=== PATIENT | female | born 1935 | race Caucasian/White ===

== ENCOUNTER 2021-10-29 10:27 | Emergency (ER) | payer OTHER ==
[2021-10-29 10:53] VITALS: BMI 22.3
[2021-10-29] MEDS ORDERED: ACETAMINOPHEN 325 MG TABLET (FP) PO ONE ×2 (12:09→14:26)
[2021-10-29] MEDS ORDERED: ACETAMINOPHEN 325 MG TABLET (FP) ONE ×2 (12:12→14:39)
[2021-10-29 15:04] VITALS: BP 121/67; PULSE 70; TEMP 98.4
== END 2021-10-29 15:13 ==
LOC: JER 10:27
DX: S09.90XA Unspecified injury of head, initial encounter (principal); W19.XXXA Unspecified fall, initial encounter
CPT/HCPCS: 70450-TC; 72125-TC; 72170-TC-FY; 73110-TC-LT-FY; 99284-25; C9803-CS; U0003; U0005

== ENCOUNTER 2022-12-11 14:07 | Observation (INO) | payer OTHER ==
[2022-12-11 15:05] LABS: BASO % 0.7 % (0-2.0); EOS % 7.4 % (0-4.5); HEMATOCRIT 34.1 % (32.4-45.2); HEMOGLOBIN 11.3 GM/dL (10.7-15.3); LYMPH % 31.8 % (8-40); MCHC 33.3 g/dl (32.0-36.0); MEAN CELL VOLUME 90.2 fl (80-96); MEAN PLT VOLUME 8.6 fl (7.5-11.1); MONO % 9.7 % (3.8-10.2); NEUT % 50.4 % (42.8-82.8); PLATELET COUNT 152 10^3/uL (134-434); RBC 3.78 M/mm3 (3.60-5.2); RDW 14.8 % (11.6-15.6); WHITE BLOOD COUNT 6.7 K/mm3 (4.0-10.0)
[2022-12-11 15:20] LABS: INR 1.07 (0.83-1.09); PROTHROMBIN TIME (PATIENT) 12.4 SEC (9.7-13.0)
[2022-12-11 15:22] LABS: ACTIVATED PTT 31.7 SECONDS (25.2-36.5)
[2022-12-11 15:28] LABS: CALCIUM 8.6 mg/dL (8.5-10.1)
[2022-12-11 15:29] LABS: ALBUMIN 3.3 g/dl (3.4-5.0); BLOOD UREA NITROGEN 20.6 mg/dL (7-18)
[2022-12-11 15:32] LABS: CREATININE 0.7 mg/dL (0.55-1.3)
[2022-12-11 15:33] LABS: BILIRUBIN,TOTAL 0.3 mg/dL (0.2-1); TOT PROT 6.1 g/dl (6.4-8.2)
[2022-12-11] MEDS ORDERED: ASPIRIN 81 MG CHEWABLE TABLETS PO ONE (16:20)
[2022-12-11] MEDS ORDERED: ATORVASTATIN CA 80 MG TABLET (FP) PO ONE (16:21)
[2022-12-11 16:50] LABS: URINE APPEARANCE CLEAR; URINE COLOR YELLOW
[2022-12-11 16:51] LABS: PH,URINE 5.5 (5.0-8.0); URINE BILIRUBIN NEGATIVE (NEGATIVE); URINE GLUCOSE (UA) NEGATIVE (NEGATIVE); URINE KETONE NEGATIVE (NEGATIVE); URINE LEUK ESTERASE NEGATIVE (NEGATIVE); URINE NITRITE NEGATIVE (NEGATIVE); URINE PROTEIN NEGATIVE (NEGATIVE); URINE UROBILINOGEN 0.2 mg/dL (0.2-1.0)
[2022-12-11] MEDS ORDERED: ATORVASTATIN CA 80 MG TABLET (FP) ONE (17:00)
[2022-12-11] MEDS ORDERED: ASPIRIN 81 MG CHEWABLE TABLETS ONE (17:00)
[2022-12-12 08:07] LABS: HEMATOCRIT 33.7 % (32.4-45.2); HEMOGLOBIN 11.5 GM/dL (10.7-15.3); MCH 30.7 pg (25.7-33.7); MCHC 34.3 g/dl (32.0-36.0); MEAN CELL VOLUME 89.7 fl (80-96); PLATELET COUNT 142 10^3/uL (134-434); RBC 3.75 M/mm3 (3.60-5.2); RDW 14.6 % (11.6-15.6); WHITE BLOOD COUNT 6.2 K/mm3 (4.0-10.0)
[2022-12-12 08:28] LABS: BLOOD UREA NITROGEN 16.9 mg/dL (7-18); CALCIUM 8.4 mg/dL (8.5-10.1)
[2022-12-12 08:29] LABS: MAGNESIUM 1.7 mg/dL (1.8-2.4)
[2022-12-12 08:32] LABS: CREATININE 0.6 mg/dL (0.55-1.3); PHOSPHOROUS 3.9 mg/dL (2.5-4.9)
[2022-12-12] MEDS ORDERED: PANTOPRAZOLE 40 MG TABLET PO ONE (09:19)
[2022-12-12] MEDS ORDERED: amLODIPine BESYLATE 5 MG TABLET (FP) ONE ×2 (09:19→09:21)
[2022-12-12] MEDS ORDERED: ATENOLOL 50 MG TABLET (FP) ONE (09:19)
[2022-12-12] MEDS ORDERED: ENOXAPARIN NA (PORCINE) 40 MG/0.4 ML DISP.SYRIN SQ ONE (09:20)
[2022-12-12] MEDS ORDERED: QUEtiapine FUMARATE 100 MG TABLET (FP) ONE (09:20)
[2022-12-12] MEDS ORDERED: CHOLECALCIFEROL (VIT D3) 1,000 UNIT (25 MCG) TABLET ONE (09:20)
[2022-12-12] MEDS ORDERED: ASPIRIN 81 MG CHEWABLE TABLETS ONE (09:20)
[2022-12-12] MEDS ORDERED: MAGNESIUM SULF 50% (8.12 MEQ/2 ML-1 GM VIAL) IVPB ONE (09:24)
[2022-12-12] MEDS ORDERED: ATENOLOL 50 MG TABLET (FP) PO SCH (10:00)
[2022-12-12] MEDS: ASPIRIN 81 MG CHEWABLE TABLETS PO SCH (10:27)
[2022-12-12] MEDS: CHOLECALCIFEROL (VIT D3) 1,000 UNIT (25 MCG) TABLET PO SCH (10:28)
[2022-12-12] MEDS: SERTRALINE HCL 50 MG TABLET (FP) PO SCH (10:28)
[2022-12-12] MEDS: ENOXAPARIN NA (PORCINE) 40 MG/0.4 ML DISP.SYRIN SQ SCH (10:28)
[2022-12-12] MEDS: PANTOPRAZOLE 40 MG TABLET PO SCH (10:28)
[2022-12-12] MEDS: amLODIPine BESYLATE 5 MG TABLET (FP) PO SCH (10:28)
[2022-12-12] MEDS ORDERED: MAGNESIUM 1GM/D5W - 1 GM/100 ML IVPB IVPB ONE (13:09)
[2022-12-12] MEDS: ATORVASTATIN CA 80 MG TABLET (FP) PO SCH (21:24)
[2022-12-13 01:26] VITALS: BMI 22.8
[2022-12-13] MEDS: ASPIRIN 81 MG CHEWABLE TABLETS PO SCH (10:58)
[2022-12-13] MEDS: ENOXAPARIN NA (PORCINE) 40 MG/0.4 ML DISP.SYRIN SQ SCH (10:58)
[2022-12-13] MEDS: CHOLECALCIFEROL (VIT D3) 1,000 UNIT (25 MCG) TABLET PO SCH (10:59)
[2022-12-13] MEDS: amLODIPine BESYLATE 5 MG TABLET (FP) PO SCH (10:59)
[2022-12-13] MEDS: SERTRALINE HCL 50 MG TABLET (FP) PO SCH (10:59)
[2022-12-13] MEDS: PANTOPRAZOLE 40 MG TABLET PO SCH (10:59)
[2022-12-13] MEDS ORDERED: ATENOLOL 25 MG TABLET (FP) PO SCH (12:08)
[2022-12-13] MEDS: ATENOLOL 25 MG TABLET (FP) PO SCH (13:03)
[2022-12-13 19:29] VITALS: RESP 18
[2022-12-13] MEDS ORDERED: DONEPEZIL HCL 5 MG TABLET (FP) PO SCH (22:00)
[2022-12-13] MEDS: ATORVASTATIN CA 80 MG TABLET (FP) PO SCH (22:06)
[2022-12-14] MEDS: PANTOPRAZOLE 40 MG TABLET PO SCH (09:22)
[2022-12-14] MEDS: ACETAMINOPHEN 325 MG TABLET (FP) PO PRN ×2 (09:22→16:27)
[2022-12-14] MEDS: ASPIRIN 81 MG CHEWABLE TABLETS PO SCH (09:22)
[2022-12-14] MEDS: ATENOLOL 25 MG TABLET (FP) PO SCH (09:23)
[2022-12-14] MEDS: CHOLECALCIFEROL (VIT D3) 1,000 UNIT (25 MCG) TABLET PO SCH (09:24)
[2022-12-14] MEDS: amLODIPine BESYLATE 5 MG TABLET (FP) PO SCH (09:24)
[2022-12-14] MEDS: SERTRALINE HCL 50 MG TABLET (FP) PO SCH (09:24)
[2022-12-14] MEDS: ENOXAPARIN NA (PORCINE) 40 MG/0.4 ML DISP.SYRIN SQ SCH (09:28)
[2022-12-14] MEDS ORDERED: ASPIRIN/DIPYRIDAMOLE 25 MG/200 MG CAPSULE PO SCH (10:00)
[2022-12-14 17:18] VITALS: BP 122/68; PULSE 57; TEMP 98
== END 2022-12-14 17:19 ==
LOC: JER 14:07 → INTOOBSV 16:53 → JERBED 16:53 → J4S 12-12 19:13
PROVIDERS: ADMIT Internal Medicine; ATTEND Family Medicine
PROC: 3E023GC Introduction of Other Therapeutic Substance into Muscle, Percutaneous Approach (ICD-10-PCS; principal; 2022-12-11)
PROC: 3E033GC Introduction of Other Therapeutic Substance into Peripheral Vein, Percutaneous Approach (ICD-10-PCS; 2022-12-11)
DX: I63.89 Other cerebral infarction (principal); F03.90 Unspecified dementia, unspecified severity, without behavioral disturbance, psychotic disturbance, mood disturbance, and anxiety; K21.9 Gastro-esophageal reflux disease without esophagitis; I10 Essential (primary) hypertension; M48.00 Spinal stenosis, site unspecified; M19.90 Unspecified osteoarthritis, unspecified site; Z87.891 Personal history of nicotine dependence
CPT/HCPCS: 36415; 70450-TC; 70496-TC; 70498-TC; 70551-TC; 80048; 80053; 80061; 81003; 82962; 83036; 83735; 84100; 84443; 84484; 85025; 85027; 85610; 85730; 86850; 86900; 86901; 87086; 87186; 93005; 93010; 93306-TC; 93880-TC; 96372; 96374; 97116-GP; 97162-GP; 99291; C9803-CS; G0378; U0003; U0005

== ENCOUNTER 2023-02-20 11:25 | Inpatient (IN) | payer OTHER ==
[2023-02-20] MEDS: SODIUM CHLORIDE 1,000 ML IV SCH (12:00)
[2023-02-20 12:43] LABS: BASO % 0.6 % (0-2.0); EOS % 7.5 % (0-4.5); HEMATOCRIT 35.9 % (32.4-45.2); HEMOGLOBIN 12.2 GM/dL (10.7-15.3); MCH 30.1 pg (25.7-33.7); MEAN CELL VOLUME 88.5 fl (80-96); MEAN PLT VOLUME 8.5 fl (7.5-11.1); NEUT % 57.9 % (42.8-82.8); PLATELET COUNT 149 10^3/uL (134-434); RBC 4.06 M/mm3 (3.60-5.2); RDW 14.9 % (11.6-15.6); WHITE BLOOD COUNT 5.5 K/mm3 (4.0-10.0)
[2023-02-20 12:49] LABS: INR 1.05 (0.83-1.09); PROTHROMBIN TIME (PATIENT) 12.2 SEC (9.7-13.0)
[2023-02-20 12:52] LABS: ACTIVATED PTT 32.3 SECONDS (25.2-36.5)
[2023-02-20 13:02] LABS: POTASSIUM 4.7 mmol/L (3.5-5.1)
[2023-02-20 13:04] LABS: CALCIUM 8.6 mg/dL (8.5-10.1)
[2023-02-20 13:06] LABS: ALBUMIN 3.6 g/dl (3.4-5.0)
[2023-02-20 13:08] LABS: CREATININE 0.8 mg/dL (0.55-1.3)
[2023-02-20 13:11] LABS: BILIRUBIN,TOTAL 0.6 mg/dL (0.2-1); TOT PROT 6.7 g/dl (6.4-8.2)
[2023-02-20] MEDS ORDERED: ACETAMINOPHEN 325 MG TABLET (FP) PO PRN (16:10)
[2023-02-20 20:21] VITALS: BMI 23.3
[2023-02-20] MEDS: HEPARIN NA (PORCINE) 5,000 UNITS/ML 1ML VIAL SQ SCH (21:42)
[2023-02-20] MEDS: ATORVASTATIN CA 80 MG TABLET (FP) PO SCH (21:42)
[2023-02-20] MEDS: BUDESONIDE/FORMETEROL FUMARATE 80/4.5 mcg INHALER IH SCH (22:37)
[2023-02-20] MEDS: ASPIRIN/DIPYRIDAMOLE 25 MG/200 MG CAPSULE PO SCH (22:37)
[2023-02-21 08:08] LABS: POTASSIUM 3.8 mmol/L (3.5-5.1)
[2023-02-21 08:11] LABS: ALBUMIN 3.4 g/dl (3.4-5.0); CALCIUM 8.4 mg/dL (8.5-10.1)
[2023-02-21 08:14] LABS: CREATININE 0.7 mg/dL (0.55-1.3)
[2023-02-21 08:16] LABS: BILIRUBIN,TOTAL 0.6 mg/dL (0.2-1)
[2023-02-21] MEDS: HEPARIN NA (PORCINE) 5,000 UNITS/ML 1ML VIAL SQ SCH ×2 (10:07→21:56)
[2023-02-21] MEDS: ASPIRIN/DIPYRIDAMOLE 25 MG/200 MG CAPSULE PO SCH ×2 (10:07→21:52)
[2023-02-21] MEDS: ATENOLOL 50 MG TABLET (FP) PO SCH (10:07)
[2023-02-21] MEDS: PANTOPRAZOLE 40 MG TABLET PO SCH (10:07)
[2023-02-21] MEDS: amLODIPine BESYLATE 5 MG TABLET (FP) PO SCH (10:07)
[2023-02-21] MEDS: BUDESONIDE/FORMETEROL FUMARATE 80/4.5 mcg INHALER IH SCH ×2 (10:08→22:06)
[2023-02-21] MEDS: SERTRALINE HCL 50 MG TABLET (FP) PO SCH (10:08)
[2023-02-21] MEDS: SODIUM CHLORIDE 1,000 ML IV SCH (16:00)
[2023-02-21] MEDS ORDERED: ACETAMINOPHEN 1000 MG/100 ML BAG IVPB ONE (21:26)
[2023-02-21] MEDS ORDERED: LORazepam 0.5 MG TABLET PO ONE (21:26)
[2023-02-21] MEDS: DONEPEZIL HCL 10 MG TABLET (FP) PO SCH (21:52)
[2023-02-21] MEDS: ATORVASTATIN CA 80 MG TABLET (FP) PO SCH (21:53)
[2023-02-21] MEDS ORDERED: HALOPERIDOL 1 MG TABLET PO ONE (23:39)
[2023-02-22 08:39] LABS: CHOLESTEROL 83 mg/dL (50-200)
[2023-02-22 08:40] LABS: LDL CHOLESTEROL (ONLY SJRH) 32 mg/dL (5-100)
[2023-02-22 08:41] LABS: HDL CHOLESTEROL 43 mg/dL (40-60)
[2023-02-22 08:42] LABS: BASO % 0.3 % (0-2.0); EOS % 1.8 % (0-4.5); HEMATOCRIT 31.7 % (32.4-45.2); HEMOGLOBIN 11.3 GM/dL (10.7-15.3); LYMPH % 20.1 % (8-40); MCH 31.3 pg (25.7-33.7); MCHC 35.6 g/dl (32.0-36.0); MEAN PLT VOLUME 8.9 fl (7.5-11.1); MONO % 5.6 % (3.8-10.2); NEUT % 72.2 % (42.8-82.8); PLATELET COUNT 124 10^3/uL (134-434); RBC 3.61 M/mm3 (3.60-5.2); RDW 14.4 % (11.6-15.6); WHITE BLOOD COUNT 6.5 K/mm3 (4.0-10.0)
[2023-02-22] MEDS: PANTOPRAZOLE 40 MG TABLET PO SCH (10:15)
[2023-02-22] MEDS: SERTRALINE HCL 50 MG TABLET (FP) PO SCH (10:15)
[2023-02-22] MEDS: amLODIPine BESYLATE 5 MG TABLET (FP) PO SCH (10:15)
[2023-02-22] MEDS: ASPIRIN/DIPYRIDAMOLE 25 MG/200 MG CAPSULE PO SCH ×2 (10:16→21:28)
[2023-02-22] MEDS: HEPARIN NA (PORCINE) 5,000 UNITS/ML 1ML VIAL SQ SCH ×2 (10:21→21:29)
[2023-02-22] MEDS: BUDESONIDE/FORMETEROL FUMARATE 80/4.5 mcg INHALER IH SCH ×2 (10:22→21:33)
[2023-02-22] MEDS: ATENOLOL 50 MG TABLET (FP) PO SCH (10:25)
[2023-02-22 15:06] LABS: EPI CELLS 19 /uL (0-25.1); HYALINE CASTS 4 /uL (0-3.1); URINE APPEARANCE CLOUDY; URINE BILIRUBIN NEGATIVE (NEGATIVE); URINE COLOR YELLOW; URINE GLUCOSE (UA) NEGATIVE (NEGATIVE); URINE KETONE NEGATIVE (NEGATIVE); URINE LEUK ESTERASE NEGATIVE (NEGATIVE); URINE NITRITE POSITIVE (NEGATIVE); URINE PROTEIN NEGATIVE (NEGATIVE); URINE RBC 6 /uL (0-23.9); URINE UROBILINOGEN 0.2 mg/dL (0.2-1.0); URINE WBC 29 /uL (0-25.8)
[2023-02-22 15:19] LABS: URINE BACTERIA 10374.7 /uL (0-1359)
[2023-02-22] MEDS: DONEPEZIL HCL 10 MG TABLET (FP) PO SCH (21:28)
[2023-02-22] MEDS: ATORVASTATIN CA 80 MG TABLET (FP) PO SCH (21:28)
[2023-02-22] MEDS: SODIUM CHLORIDE 1,000 ML IV SCH (21:28)
[2023-02-23] MEDS: amLODIPine BESYLATE 5 MG TABLET (FP) PO SCH (09:37)
[2023-02-23] MEDS: ASPIRIN/DIPYRIDAMOLE 25 MG/200 MG CAPSULE PO SCH (09:37)
[2023-02-23] MEDS: PANTOPRAZOLE 40 MG TABLET PO SCH (09:37)
[2023-02-23] MEDS: SERTRALINE HCL 50 MG TABLET (FP) PO SCH (09:37)
[2023-02-23] MEDS: HEPARIN NA (PORCINE) 5,000 UNITS/ML 1ML VIAL SQ SCH (09:37)
[2023-02-23] MEDS: ATENOLOL 50 MG TABLET (FP) PO SCH (09:37)
[2023-02-23] MEDS: BUDESONIDE/FORMETEROL FUMARATE 80/4.5 mcg INHALER IH SCH (09:38)
[2023-02-23 11:45] VITALS: RESP 18
[2023-02-23 14:41] VITALS: PULSE 63; TEMP 98.5
[2023-02-23 14:45] VITALS: BP 118/71
== END 2023-02-23 14:52 | DRG 69 ==
LOC: JER 11:25 → JERBED 17:01 → J4W 18:45 → OBSVTOIN 02-22 13:51
PROVIDERS: ADMIT Family Medicine; ATTEND Family Medicine
DX: G45.9 Transient cerebral ischemic attack, unspecified (principal); I10 Essential (primary) hypertension; E78.5 Hyperlipidemia, unspecified; F41.9 Anxiety disorder, unspecified; F32.A Depression, unspecified; K21.9 Gastro-esophageal reflux disease without esophagitis; R47.81 Slurred speech; R29.700 NIHSS score 0; J44.9 Chronic obstructive pulmonary disease, unspecified; G30.9 Alzheimer's disease, unspecified; F02.80 Dementia in other diseases classified elsewhere, unspecified severity, without behavioral disturbance, psychotic disturbance, mood disturbance, and anxiety; R09.02 Hypoxemia
CPT/HCPCS: 0241U-QW; 36415; 70450-TC; 70496-TC; 70498-TC; 70551-TC; 71045-TC-FY; 80053; 80061; 81003; 82550; 82962; 83036; 84443; 84484; 85025; 85610; 85730; 86850; 86900; 86901; 87086; 87186; 93005; 93010; 97116-GP; 97161-GP; 99285-25; G0378; J1644